=== PATIENT | female | born 1995 | race Caucasian/White ===

== ENCOUNTER → 2022-09-16 09:12 | Outpatient (RCR) | payer OTHER, SELFPAY ==
[2020-10-08 07:26] LABS: COVID-19 Test Negative (Negative)
[2020-10-16 07:08] LABS: COVID-19 Test Negative (Negative); IDNOW Serial# 55D5AD1C
[2020-10-22 09:25] LABS: COVID-19 Test Negative (Negative)
[2020-11-15 13:16] LABS: SARS-COV-2 PCR UMBRL Not Detected
[2020-11-20 11:51] LABS: SARS-COV-2 PCR UMBRL Not Detected
== END | disposition home or self-care (01) ==
LOC: HO.EMPCOV 10-08 06:55
PROVIDERS: PCP Internal Medicine; Visit Provider Internal Medicine
DX: Z20.828 Contact with and (suspected) exposure to other viral communicable diseases (principal)
CPT/HCPCS: 87635; C9803; U0003

== ENCOUNTER 2023-07-06 04:46 | Emergency (ER) | payer OTHER, SELFPAY ==
--- NOTE | ~2023-07-06 | CT_ITS ---
EXAMINATION: CT FACIAL BONES CLINICAL INFORMATION: Consults COMPARISON: None TECHNIQUE: Computed imaging of facial bones in the axial sagittal and coronal pain, department standard protocol. This CT examination was performed using dose optimization techniques as appropriate, variously including the following: *Automated exposure control *Adjustment of mA and/or kV according to patient size (this includes techniques or standardized protocols for targeted exams where dose is matched to indication/reason for exam; i.e. extremities or head) *Use of iterative reconstruction technique MDP: 289 MG Y per centimeter FINDINGS : SKULL BASE: Included structures at skull base are normal. BONES: Skull base, orbital bones, nasal bones, maxillary bones, mandibles, zygomatic arches, and included cervical vertebrae are normal. ORBITS: Globes are symmetric. Orbital structures are normal. SALIVARY GLANDS: Unremarkable SINUSES: Clear CT/CT facial bones wo IV con IMPRESSION: No CT evidence of facial bone fractures.
[2023-07-06 04:51] VITALS: BP 122/81; PULSE 107; RESP 16; O2SAT 99; BMI 22.8
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
[2023-07-06] MEDS: Ibuprofen 600 MG TABLET PO (07:43)
== END 2023-07-06 07:53 | disposition home or self-care (01) ==
PROVIDERS: Emergency Provider Emergency Medicine; PCP Internal Medicine
DX: S00.83XA Contusion of other part of head, initial encounter (principal); Y04.2XXA Assault by strike against or bumped into by another person, initial encounter; Y93.9 Activity, unspecified; Y92.9 Unspecified place or not applicable; Y99.9 Unspecified external cause status
CPT/HCPCS: 70486; 99284